=== PATIENT | female | born 1975 | race Caucasian/White ===

== ENCOUNTER 2016-11-07 09:00 | Outpatient (CLI) | payer OTHER | END 2016-11-07 09:01 | disposition home or self-care (01) | LOC: NC 09:00 | PROVIDERS: ATTEND Family Medicine | DX: F50.01 Anorexia nervosa, restricting type (principal); Z71.3 Dietary counseling and surveillance ==

== ENCOUNTER 2016-11-28 13:37 | Outpatient (CLI) | payer OTHER | END 2016-11-28 13:38 | disposition home or self-care (01) | LOC: NC 13:37 | PROVIDERS: ATTEND Family Medicine | DX: F50.01 Anorexia nervosa, restricting type (principal); Z71.3 Dietary counseling and surveillance; Z68.29 Body mass index [BMI] 29.0-29.9, adult; E11.9 Type 2 diabetes mellitus without complications; Z79.84 Long term (current) use of oral hypoglycemic drugs | CPT/HCPCS: G0108 ==

== ENCOUNTER 2016-12-06 09:03 | Outpatient (CLI) | payer OTHER | END 2016-12-06 09:04 | disposition home or self-care (01) | LOC: NC 09:03 | PROVIDERS: ATTEND Family Medicine | DX: Z71.3 Dietary counseling and surveillance (principal); F50.01 Anorexia nervosa, restricting type ==

== ENCOUNTER 2016-12-20 08:53 | Outpatient (CLI) | payer OTHER | END 2016-12-20 08:54 | disposition home or self-care (01) | LOC: NC 08:53 | PROVIDERS: ATTEND Family Medicine | DX: F50.01 Anorexia nervosa, restricting type (principal); F43.10 Post-traumatic stress disorder, unspecified ==

== ENCOUNTER 2017-01-16 12:22 | Outpatient (CLI) | payer OTHER | END 2017-01-16 12:23 | disposition home or self-care (01) | LOC: NC 12:22 | PROVIDERS: ATTEND Family Medicine | DX: E11.8 Type 2 diabetes mellitus with unspecified complications (principal) ==

== ENCOUNTER 2017-02-01 10:57 | Outpatient (CLI) | payer OTHER | END 2017-02-01 10:58 | disposition home or self-care (01) | LOC: NC 10:57 | PROVIDERS: ATTEND Family Medicine | DX: F50.00 Anorexia nervosa, unspecified (principal); Z71.3 Dietary counseling and surveillance ==